=== PATIENT | female | born 1970 | race Caucasian/White ===

== ENCOUNTER → 2017-04-16 | Outpatient (CLI) | payer OTHER ==
[~2017-04-16] MED LIST: ALBU90OI6; ASPI81CH; BD INSULIN; CHOL10002 PO; Cipro500 MG PO; DILT120 PO; DILT120ERA; DIPATR PO; ERGO50000 PO; ESOM20; ESOM20 PO; EZET10; FLUT.05NI; INSUASPI SC; INSULANI SC; INSULANPEN; IRBE150 PO; LIVALO4 MG; MULVITMINE PO; NITR.6SL; Norco 5-325 Ta1 EACH PO; OMEG1CAP30; PROM25 PO; Pataday2.5 ML; Pyridium200 MG PO; RXPROM25S PR
== END | disposition home or self-care (01) ==
LOC: LAB 10:28
DX: J02.9 Acute pharyngitis, unspecified (principal)
CPT/HCPCS: 87070

== ENCOUNTER → 2017-05-27 | Outpatient (CLI) | payer OTHER ==
[2017-05-28 12:54] LABS: HPV Genotype 16 Not Detected (NOTDET); HPV Genotype 18 Not Detected (NOTDET)
[2017-06-08 10:39] LABS: HPV High Risk Other Not Detected (NOTDET)
== END | disposition home or self-care (01) ==
LOC: OLS 11:43
PROVIDERS: Obstetrics & Gynecology Gynecology
DX: Z12.72 Encounter for screening for malignant neoplasm of vagina (principal)
CPT/HCPCS: 87624; G0123

== ENCOUNTER → 2022-02-05 | Outpatient (CLI) | payer OTHER | LOC: LAB SHORT 13:44 → LAB 13:44 | DX: R30.0 Dysuria (principal) | CPT/HCPCS: 87077; 87086; 87186 ==

== ENCOUNTER → 2023-03-20 | Outpatient (CLI) | payer BC, OTHER | END | disposition home or self-care (01) | LOC: LAB SHORT 13:40 | DX: N39.0 Urinary tract infection, site not specified (principal) | CPT/HCPCS: 87077; 87086; 87186 ==